=== PATIENT | male | born 1960 | race Caucasian/White ===

== ENCOUNTER 2016-12-16 11:21 | Inpatient (IN) | payer OTHER ==
--- NOTE | 2016-12-13 19:01 | HP ---
HISTORY AND PHYSICAL: DATE OF ADMISSION/SURGERY: 12/16/16 DATE OF OFFICE VISIT: 12/13/16 SURGEON: Altagracia Wyatt MD PROCEDURE: Right total knee arthroplasty. CHIEF COMPLAINT: Right knee pain. HISTORY OF PRESENT ILLNESS: Scott is a 56-year-old gentleman with complaints of right knee pain secondary to advanced osteoarthritis. He has failed conservative management and has elected to proceed with a right total knee arthroplasty. The surgery is scheduled for 12/16/[address] Wyatt. PAST MEDICAL HISTORY: Osteoarthritis. PAST SURGICAL HISTORY: Right biceps tendon repair. CURRENT MEDICATIONS: [id number] ibuprofen. ALLERGIES: No known drug allergies. FAMILY HISTORY: Heart disease. SOCIAL HISTORY: This is a 56-year-old gentleman. 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 He lives alone. He denies use of drugs. He does not smoke. REVIEW OF SYSTEMS: A complete 14-point review of systems was reviewed with the patient. He denies any bleeding disorders, history of DVT, PE, MRSA, hepatitis C, or HIV. He does report having difficulty waking up after anesthesia from his biceps tendon repair surgery. PHYSICAL EXAMINATION GENERAL: He is well developed, well nourished, in no acute distress. VITAL SIGNS: Stands 5 feet 11 inches tall, weighs 255 pounds. His blood pressure is 125/72 and his heart rate is 77. HEENT: Normocephalic, atraumatic. NECK: Supple. No palpable lymph nodes. PULMONARY: Lungs are clear to auscultation bilaterally. No wheezes, rhonchi, or rales. CARDIO: Regular rate and rhythm. Strong S1 and S2. No murmurs, gallops, or rubs. No peripheral edema. ABDOMEN: Soft, nontender, nondistended. MUSCULOSKELETAL: Right lower extremity skin is intact. He walks with a slightly antalgic type gait favoring the right leg. He has intact sensation. His lower extremity muscle group strengths are intact at 5/5. He has 2+ dorsalis pedis pulses. He has some tenderness over the medial and lateral joint line over the right knee. There is some mild joint effusion. No varus or valgus instability. Negative Tess's. Full range of motion. NEUROLOGICAL: He is alert and oriented x3. Cranial nerves II through XII are intact. ASSESSMENT AND PLAN: Scott is a 56-year-old gentleman with complaints of right knee pain secondary to advanced osteoarthritis. He has failed conservative management and has elected to proceed with a right total knee arthroplasty, which is scheduled for 12/16/16. Dr. Wyatt discussed the risks and benefits of the surgery with him today and all of his questions were answered. Percocet, Coumadin, and Colace were sent to his pharmacy today for post-operative DVT prophylaxis and pain control. He was instructed not to take these medications prior to the surgery. He will see Dr. Wyatt back 10 to 14 days after the surgery. RENEA GONZALES [id number]/[facility] #: [id number] MTDGely
[~2016-12-16 11:21] MED LIST: Buffered Lidocaine 1% SYR 3ML* 3 ML/SYR SYRINGE INTRADERM ONE; Famotidine IV* 10 MG/ML 2 ML (20 mg) IV ONE; Morphine INJ* 2 MG/ML 1 ML CARPUJECT IV PRN; PROCHLORPERAZINE INJ 5 MG/ML 2 ML VIAL IV PRN; fentaNYL* 50 MCG/ML 2 ML VIAL (100 MCG VIAL) IV PRN; oxyCODONE/Acetamin 5/325 MG* TAB PO PRN
[2016-12-16] MEDS ORDERED: ceFAZolin 2 GM PREMIX (*) 2 GM/50 ML BAG IVPB ONE (11:35)
[2016-12-16] MEDS ORDERED: Famotidine IV* 10 MG/ML 2 ML (20 mg) ONE (11:35)
[2016-12-16] MEDS ORDERED: Midazolam* 1 MG/ML 10 ML VIAL (10 MG) ONE (12:02)
[2016-12-16] MEDS ORDERED: fentaNYL* 50 MCG/ML 2 ML VIAL (100 MCG VIAL) ONE (12:02)
[2016-12-16] MEDS ORDERED: Morphine PF AMP (0.5MG/ML)* 5 MG/10 ML AMP ONE (12:02)
[2016-12-16] MEDS ORDERED: KETAMINE HCL* 50 MG/ML 10 ML VIAL ONE (12:02)
[2016-12-16] MEDS ORDERED: Midazolam* 1 MG/ML 2 ML VIAL (2 MG) ONE (14:23)
[2016-12-16] MEDS ORDERED: Ondansetron INJ* 2 MG/ML VIAL IV PRN (15:01)
[2016-12-16] MEDS ORDERED: Naloxone* 0.4 MG/ML 1 ML VIAL IV PRN (15:01)
[2016-12-16] MEDS ORDERED: PROCHLORPERAZINE INJ 5 MG/ML 2 ML VIAL IV PRN (15:01)
[2016-12-16] MEDS ORDERED: Ondansetron INJ* 2 MG/ML VIAL ONE ×2 (15:08→19:47)
[2016-12-16] MEDS ORDERED: Lidocaine 2% PF * 5 ML VIAL ONE (15:08)
[2016-12-16] MEDS ORDERED: Dexamethasone IV* 4 MG/ML 1 ML (4 MG) ONE (15:08)
[2016-12-16] MEDS ORDERED: Propofol* 10 MG/ML 20 ML BTL IV PUSH ONE (15:08)
[2016-12-16] MEDS ORDERED: Scopolamine PATCH Remove* 1 NOTE MISC PATCH OFF SCH (16:00)
[2016-12-16] MEDS ORDERED: Scopolamine 1.5 mg* PATCH TRANSDERM SCH (16:00)
[2016-12-16] MEDS ORDERED: Bisacodyl SUPP* 10 MG SUPP PR PRN (16:38)
[2016-12-16] MEDS ORDERED: Polyethylene Glycol 3350* 17 GM PACKET PO PRN (16:38)
[2016-12-16] MEDS ORDERED: Acetaminophen TAB* 325 MG PO PRN (16:38)
[2016-12-16] MEDS ORDERED: Bupivacaine 0.25% SDV* 30 ML ONE (16:39)
[2016-12-16] MEDS ORDERED: Bupivacaine 0.5% SDV PF* 30 ML VIAL ONE (16:39)
[2016-12-16] MEDS ORDERED: Albuterol HFA INHALER* 8 gm MDI INH PRN (16:46)
[2016-12-16] MEDS ORDERED: VALACYCLOVIR 500 MG PO PRN (16:46)
[2016-12-16] MEDS ORDERED: Scopolamine 1.5 mg* PATCH ONE (18:17)
[2016-12-16] MEDS ORDERED: Nalbuphine* 20 MG/ML 1 ML VIAL ONE (19:55)
[2016-12-16] MEDS: Nalbuphine* 20 MG/ML 1 ML VIAL IV PRN (20:00)
[2016-12-16] MEDS ORDERED: Warfarin TAB(*) 4 MG PO ONE (21:00)
--- NOTE | 2016-12-16 21:12 | RAD ---
HISTORY: Status post right knee arthroplasty COMPARISONS: October 11, 2016 VIEWS: 2, Frontal and lateral views of the right knee FINDINGS: BONE DENSITY: Normal. BONES: The patient is status post right knee arthroplasty. There is no hardware failure or osteolysis. JOINTS: The patient is status post right knee arthroplasty. ALIGNMENT: There is no dislocation. SOFT TISSUES: There is postsurgical change to the soft tissue OTHER FINDINGS: None. IMPRESSION: STATUS POST RIGHT KNEE ARTHROPLASTY
[2016-12-16] MEDS: ceFAZolin 1 GM in Dextrose (*) 1 GM/50 ML BAG IVPB SCH (22:00)
[2016-12-16] MEDS: Magnesium Hydroxide LIQ* 30 ML UDC PO SCH (22:01)
[2016-12-16] MEDS: Docusate CAP* 100 MG PO SCH (22:01)
[2016-12-17] MEDS: Nalbuphine* 20 MG/ML 1 ML VIAL IV PRN (02:37)
[2016-12-17] MEDS: oxyCODONE/Acetamin 5/325 MG* TAB PO PRN ×4 (03:42→23:58)
[2016-12-17] MEDS: ceFAZolin 1 GM in Dextrose (*) 1 GM/50 ML BAG IVPB SCH ×2 (05:07→14:54)
[2016-12-17] MEDS ORDERED: Ondansetron INJ* 2 MG/ML VIAL IV PRN (06:00)
[2016-12-17] MEDS ORDERED: oxyCODONE/Acetamin 5/325 MG* TAB PO PRN (06:00)
--- NOTE | 2016-12-17 06:59 | OP ---
DATE OF OPERATION: 12/16/16 - ROOM #349 DATE OF : 56 SURGEON: Altagracia Wyatt MD CAR WORKER: RENEA Taylor ANESTHESIOLOGIST: Dr. Turner. ANESTHESIA: Spinal with adductor nerve block. PRE-OP DIAGNOSIS: Severe end-stage degenerative osteoarthritis of the right knee joint. POST-OP DIAGNOSIS: Severe end-stage degenerative osteoarthritis of the right knee joint. OPERATIVE PROCEDURE: Right total knee arthroplasty. TOURNIQUET TIME: 55 minutes. COMPLICATIONS: None. SPECIMEN: Bone and cartilage from right knee joint sent to pathology. ESTIMATED BLOOD LOSS: 300 cc. HARDWARE USED: Cemented [employer] total knee hardware with two packages of Simplex bone cement. To the femur, size 7 right posterior stabilized Oxinium femoral component. For the tibia a size 6 right tibial base plate, for the insert an 11 mm posterior stabilized articular insert and for the patella 3- peg all poly patella size 35. BRIEF HISTORY AND INDICATIONS: Mr. Crenshaw is a 56-year-old gentleman with years of increasingly severe right knee pain. He failed conservative treatment with antiinflammatories, pain medications, intraarticular injections and physical therapy. Radiographs showed [id number] arthritis. He elected to undergo right total knee arthroplasty due to continued pain and decreased quality of life. Informed consent was obtained from the patient. He understood the risks of the procedure included but were not limited to bleeding, infection, damage to nearby structures, continued pain, need for further surgery, intraoperative fracture, nerve palsy, hardware failure or loosening, stroke, heart attack, blood clot and . He wished to proceed. INTRAOPERATIVE FINDINGS: Intraoperatively, the patient was noted to have a fibrous enlarged prepatellar bursa, which was excised. He had severe end-stage arthritis with complete loss of cartilage in the medial and patellofemoral compartments. DESCRIPTION OF PROCEDURE: Mr. Crenshaw was identified in the preanesthesia unit. His right lower extremity was marked as correct operative side. Informed consent was signed and placed in the chart. The patient was taken to the operating room. He had an adductor canal block placed as well as spinal anesthesia. A Villalobos catheter was placed. Thigh high tourniquet was placed on the right thigh. The right lower extremity was prepped and draped in the usual sterile fashion. Preoperative time- out was made to correctly identify the patient's side and site. Appropriate perioperative antibiotics were given within 1 hour of incision. Tourniquet was inflated and total tourniquet time for this procedure was 55 minutes. A 14 cm midline incision was made with a 10 blade. This was carried down to the extensor mechanism. A fibrous and large prepatellar bursa was identified and excised with electrocautery. A new 10 blade was used to make a standard medial parapatellar arthrotomy. The patella was subluxed laterally. Soft tissue was elevated using electrocautery off the superomedial tibia to the mid sagittal plane. The knee was flexed up. Anterior horn of the lateral meniscus and ACL were sharply released. A drill was used to enter the distal femur. Intramedullary distal femoral cutting guide was pinned into proper position and oscillating saw was used to make the distal femoral cuts. External rotation guide was pinned on the distal femur. The femur was sized to a size 7. Size 7 multicutting block was chosen and pinned into proper position on the distal femur. The oscillating saw was used to make the appropriate four chamfer cuts. All bony fragments were carefully removed. Next, the PCL was completely released and tibia was subluxed anteriorly. Extramedullary tibial cutting guide was pinned into position on the proximal tibia. Oscillating saw was used to make the appropriate proximal tibial cut. The bone was carefully removed. This cut was made perpendicular to the mechanical axis of the tibia. Tibia was brought out into full extension. A spacer block had good fit with full extension of the knee. There was good medial and lateral ligamentous balancing. Good flexion and extension gap balancing. The knee was flexed up. Lamina hospice physician was placed both medially and laterally. Any remaining meniscus was carefully removed using electrocautery. A curved osteotome was used to remove posterior osteophytes along the posterior femoral condyles. The tibial tray and drop mirna once again ensured a satisfactory proximal tibial cut. A size 7 right femoral trial was then chosen and impacted onto the distal femur. There was excellent fit. Box for the posterior stabilized implant was prepared using a reamer and box cut osteotome. A size 6 tibial trial and 11 mm insert trial were chosen. The knee was taken through range of motion and noted to have full extension to 130 degrees of flexion with good patellofemoral tracking. The patella was everted. A 9 mm of patellar bony cartilage was carefully removed with an oscillating saw. The patella was sized to size 35. The three peg holes were drilled through the size 35 guide. Trial 35 patella was placed and the knee was taken through range of motion. There was good patellofemoral tracking. All trials were carefully removed. The tibia was subluxed anteriorly and sized to a size 6. Proximal tibia was prepared using a size 6 keel punch. All bony cut surfaces were copiously irrigated with sterile saline and dried. The final implants were cemented into place starting with the tibia, followed by the femur and last the patella. An 11 mm insert trial was chosen and placed while the knee was brought out into the full extension, tourniquet was turned down at 55 minutes. The knee was copiously irrigated. Once the cement had fully cured, the insert trial was removed. Electrocautery was used to obtain meticulous hemostasis. Any excess cement was carefully removed. Final insert chosen was a posterior stabilized 11 mm, size 5/6 polyethylene insert. This was locked into position on the tibial tray. Stability of the insert was checked and rechecked and noted to be stable. Final range of motion was 0 to 130 degrees of flexion. There was good patellofemoral tracking. Good medial and lateral stability. The knee was copiously irrigated with sterile saline. The extensor mechanism was closed over a medium Hemovac drain using interrupted #1 Vicryl. The rest of the incision was closed in a layered fashion using 0 and 2-0 Vicryl. Skin was closed using running 3-0 nylon suture. Sterile Xeroform, 4x4's, and Webril were placed over the incision. Jw wrap and cold pack were placed over this. The patient's anesthesia was reversed without difficulty. He was taken to the PACU in stable condition. Intended weightbearing will be weightbearing as tolerated. Intended deep vein thrombosis prophylaxis will be Coumadin with a Lovenox bridge. [id number]/[facility] #: [id number] HEALTH SYSTEMGely
[2016-12-17 07:07] LABS: Hematocrit 39 % (42-52); Hemoglobin 13.8 g/dl (14.0-18.0)
[2016-12-17 07:28] LABS: Calcium 8.8 mg/dL (8.6-10.3); EGFR African American 112.9 (>60); EGFR Non-African American 87.8 (>60); Potassium 4.7 mmol/L (3.5-5.0)
[2016-12-17] MEDS: Ondansetron TAB* 4 MG PO PRN (08:36)
[2016-12-17] MEDS: Docusate CAP* 100 MG PO SCH ×2 (08:37→19:35)
[2016-12-17] MEDS: Magnesium Hydroxide LIQ* 30 ML UDC PO SCH ×2 (08:37→19:36)
[2016-12-17] MEDS: Vitamin THERAPEUTIC TAB PO SCH (08:37)
[2016-12-17] MEDS: diPHENhydraMINE IV* 50 MG/ML 1 ml VIAL (BENADRYL) IV PRN ×2 (10:37→19:24)
[2016-12-17] MEDS: Morphine INJ* 4 MG/ML 1 ML CARPUJECT IV PRN ×3 (11:35→21:56)
--- NOTE | 2016-12-17 12:29 | PN ---
Progress Note - Progress Note SOAP: Subjective: [56 y/o male s/p R TKA 12/16/2016. Patient reports feeling well, + itchy. Pain controlled with pain medication, ambulatory this AM to rest room. No complaints. ] Objective: [General- Well appearing, NAD MSK- SUrgical dressing intact, no drainage. + dorsi/plantarflexion b/l LE's, minimal swelling R LE neg homans sign b/l. Vital Signs Temp 97.3 F 12/17/16 07:56 Pulse 68 12/17/16 07:56 Resp 18 12/17/16 11:35 BP 116/67 12/17/16 07:56 Pulse Ox 95 12/17/16 07:56 Intake & Output 12/16/16 12/17/16 12/17/16 18:59 06:59 18:59 Intake Total 2530 1128 Output Total 300 650 Balance 2230 478 Weight 248 lb Intake: IV Fluids 2500 953 LR 2500 953 IVPB 55 Kefzol 55 Oral 30 120 Output: Villalobos 300 650 ] Assessment: [56 y/o male s/p R TKA 12/16/2016. ] Plan: [- DVT prophy- continue lovenox, coumadin 8mg tonight - Continue PT - Continue pain regimen ] Active Medications Generic Name Dose Route Start Last Admin Trade Name Freq PRN Reason Stop Dose Admin Acetaminophen 650 mg 12/16/16 16:38 Tylenol Tab* PO Q4H PRN fever, pain Albuterol 2 puff 12/16/16 16:46 Ventolin Hfa Inhaler* INH Q3H PRN SOB/WHEEZING Bisacodyl 10 mg 12/16/16 16:38 Dulcolax Supp* LA DAILY PRN constipation Diphenhydramine HCl 12.5 mg 12/17/16 06:00 12/17/16 10:37 Benadryl Iv* IV 12.5 mg Q6H PRN Administration PRURITIS Docusate Sodium 100 mg 12/16/16 21:00 12/17/16 08:37 Colace Cap* PO 100 mg BID PRINCESS Administration Enoxaparin Sodium 40 mg 12/17/16 16:00 Lovenox(*) SUBCUT Q24H PRINCESS Cefazolin Sodium/Dextrose 1 gm in 50 mls @ 200 mls/hr 12/16/16 21:00 05:07 Kefzol 1 Gm In Dextrose Duplex (*) IVPB 12/17/16 13:14 200 mls/hr Q8H PRINCESS Administration Lactated Ringer's 1,000 mls @ 100 mls/hr 12/16/16 17:00 12/17/16 03:00 Lactated Ringers 1000 Ml Bag* IV 100 mls/hr PER RATE PRINCESS Administration Ibuprofen 800 mg 12/16/16 15:01 Motrin Tab* PO 12/21/16 09:02 Q6H PRN PAIN Lactulose 30 ml 12/16/16 16:38 Lactulose* PO Q6H PRN constipation Magnesium Hydroxide 30 ml 12/16/16 21:00 12/17/16 08:37 Milk Of Magnesia Liq* PO 30 ml BID PRINCESS Administration Morphine Sulfate 4 mg 12/17/16 06:00 12/17/16 11:35 Morphine Inj (Syringe)* IV 4 mg Q2H PRN Administration PAIN - BREAKTHROUGH Multivitamins 1 tab 12/17/16 09:00 12/17/16 08:37 Theragran Tab* PO 1 tab DAILY PRINCESS Administration Ondansetron HCl 4 mg 12/17/16 06:00 Zofran Inj* IV Q6H PRN nausea Ondansetron HCl 4 mg 12/17/16 06:00 12/17/16 08:36 Zofran Tab* PO 4 mg Q6H PRN Administration NAUSEA Oxycodone/Acetaminophen 2 tab 12/16/16 15:01 12/17/16 03:42 Percocet 5/325 Tab* PO 12/19/16 19:02 2 tab Q4H PRN Administration Moderate Pain Oxycodone/Acetaminophen 1 tab 12/17/16 06:00 Percocet 5/325 Tab* PO Q4H PRN PAIN - MILD Oxycodone/Acetaminophen 2 tab 12/19/16 19:02 12/17/16 08:35 Percocet 5/325 Tab* PO 2 tab Q4H PRN Administration PAIN - MODERATE Pharmacy Profile Note 1 note 12/16/16 16:00 Scopolomine Patch Remove* PATCH OFF 12/19/16 15:02 .AFTER 72 HOURS PRINCESS Polyethylene Glycol/Electrolytes 17 gm 12/16/16 16:38 Miralax* PO DAILY PRN Constipation Scopolamine 1 patch 12/16/16 16:00 12/16/16 18:18 Transderm-Scop 1.5 Mg Patch* TRANSDERM 1 patch Q72H PRINCESS Administration Valacyclovir HCl 500 mg 12/16/16 16:46 Valtrex 500 Mg (*) PO DAILY PRN Herpes outbreak Protocol Warfarin Sodium 8 mg 12/17/16 17:00 Coumadin Tab(*) PO 12/17/16 17:01 ONCE@1700 ONE Protocol
--- NOTE | 2016-12-17 14:20 | PN ---
Progress Note - Progress Note Note: Anesthesia duramorph followup. The pt had nausea and vomiting last night. I'd bet this was from the duramorph. He did have a scopolamine patch on. His nausea is much better. Pain is controlled woth oral meds. Neuro ok, VSS. s/p TKR, continue oral meds.
[2016-12-17] MEDS ORDERED: Enoxaparin(*) 40 MG/0.4 ML SYR SUBCUT SCH (16:00)
[2016-12-17] MEDS ORDERED: Warfarin TAB(*) 4 MG PO ONE (17:00)
[2016-12-18] MEDS: Ondansetron TAB* 4 MG PO PRN (00:04)
[2016-12-18] MEDS: Morphine INJ* 4 MG/ML 1 ML CARPUJECT IV PRN ×5 (00:05→10:01)
[2016-12-18] MEDS: diPHENhydraMINE IV* 50 MG/ML 1 ml VIAL (BENADRYL) IV PRN (01:15)
[2016-12-18] MEDS: Al Hydrox/Mg Hydrox/Simet LIQ* 30 ML UDC PO PRN ×2 (01:16→07:03)
[2016-12-18] MEDS: Ibuprofen TAB* 800 MG PO PRN ×3 (01:16→18:36)
[2016-12-18] MEDS: oxyCODONE/Acetamin 5/325 MG* TAB PO PRN ×6 (03:42→23:13)
[2016-12-18 07:34] LABS: Hematocrit 34 % (42-52); Hemoglobin 11.8 g/dl (14.0-18.0)
[2016-12-18] MEDS: Docusate CAP* 100 MG PO SCH ×2 (07:52→19:40)
[2016-12-18] MEDS: Vitamin THERAPEUTIC TAB PO SCH (07:52)
[2016-12-18] MEDS: Magnesium Hydroxide LIQ* 30 ML UDC PO SCH (07:52)
[2016-12-18] MEDS ORDERED: chlorproMAZINE INJ* 25 MG/ML 2 ML (50 MG) IV PRN (10:07)
--- NOTE | 2016-12-18 10:18 | PN ---
Progress Note - Progress Note SOAP: Subjective: Pt. reports pain is severe, he has acid reflux and is suffering from intractable hiccups. Objective: RLE - dressing changed, inc c/d/i. min swelling. distally nvi. Vital Signs: Temp Pulse Resp BP Pulse Ox 97.8 F 76 18 142/65 97 12/18/16 07:35 12/18/16 07:35 12/18/16 10:01 12/18/16 07:35 12/18/16 08:00 Laboratory Results - last 24 hr 12/18/16 12/18/16 07:10 07:10 Hgb 11.8 L Hct 34 L INR (Anticoag Therapy) 2.25 H Assessment: 56 yo M pod 2 s/p RTKA Plan: pt/ot - wbat rle 3 mg coumadin tonight, d/c lovenox acid reflux and hiccups - tums, famotidine and thorazine aggressive bowel regimen today plan d/c to home tomorrow
[2016-12-18] MEDS: Morphine TAB Extended Release (*) 30 MG TAB.ER PO SCH ×2 (11:05→23:13)
[2016-12-18] MEDS: chlorproMAZINE TAB* 25 MG PO PRN ×2 (11:07→19:38)
[2016-12-18] MEDS ORDERED: Warfarin TAB(*) 3 MG PO ONE (17:00)
[2016-12-18] MEDS ORDERED: Magnesium Hydroxide LIQ* 30 ML UDC PO PRN (19:15)
[2016-12-18] MEDS: Famotidine TAB* 20 MG PO SCH (19:38)
[2016-12-19] MEDS: oxyCODONE/Acetamin 5/325 MG* TAB PO PRN ×2 (03:58→08:39)
[2016-12-19] MEDS: Famotidine TAB* 20 MG PO SCH (07:30)
[2016-12-19] MEDS: Vitamin THERAPEUTIC TAB PO SCH (07:30)
[2016-12-19] MEDS: Ibuprofen TAB* 800 MG PO PRN (07:30)
[2016-12-19] MEDS: chlorproMAZINE TAB* 25 MG PO PRN (07:30)
[2016-12-19] MEDS: Docusate CAP* 100 MG PO SCH (07:30)
[2016-12-19 08:14] LABS: Hematocrit 32 % (42-52); Hemoglobin 10.7 g/dl (14.0-18.0)
[2016-12-19 08:43] VITALS: BP 130/59
--- NOTE | 2016-12-19 09:49 | PN ---
Progress Note - Progress Note SOAP: Subjective: [Pt reports doing well. Pain controlled with po meds. Denies CP/SOB/calf pain. Feel ready to go home.] Objective: [A and O x 3, NAD R knee dressing C/D/I. Calf soft, NT. Distal NV function, gross motor intact. Laboratory Results - last 24 hr 12/19/16 12/19/16 07:50 07:50 Hgb 10.7 L Hct 32 L INR (Anticoag Therapy) 2.14 H Vital Signs: Temp Pulse Resp BP Pulse Ox 98.2 F 97 18 130/59 95 12/19/16 08:01 12/19/16 08:01 12/19/16 08:39 12/19/16 08:01 12/19/16 08:01 ] Assessment: [s/p R TKA POD #3] Plan: [D/C patient home with services Coumadin 2 mg today Percocet and morphine for pain control WBAT R LE Follow-up with Dr. Wyatt in 2 weeks]
[2016-12-19] MEDS: Morphine TAB Extended Release (*) 30 MG TAB.ER PO SCH (10:23)
[2016-12-19] MEDS ORDERED: oxyCODONE/Acetamin 5/325 MG* TAB PO PRN (19:02)
--- NOTE | 2016-12-19 23:15 | DS ---
DISCHARGE SUMMARY: DATE OF ADMISSION: 12/16/16 DATE OF DISCHARGE: 12/19/16 ADMITTING DIAGNOSIS: Right knee osteoarthritis. DISCHARGE DIAGNOSES: Status post right total knee arthroplasty. PROCEDURE: Right total knee arthroplasty. CONSULTANTS: Physical therapy and occupational therapy. BRIEF HISTORY: Mr. Crenshaw is a 56-year-old male with severe degenerative osteoarthritis of his right knee. He failed conservative treatment measures and elected to undergo right total knee arthroplasty on 12/16/[address] Wyatt. HOSPITAL COURSE: Mr. Crenshaw was admitted to [facility] on 12/16/16. He underwent an uncomplicated right total knee arthroplasty. Postoperatively, he recovered on the short-stay surgical unit. On postoperative day #1, his Villalobos catheter was removed; however, the patient was having difficulty urinating on his own and 100 mL lactated Ringer bolus was administered. The patient was unable to urinate on his own. Postoperative day #2, he was able to have a bowel movement. He suffered from acid reflux and intractable hiccups during his postoperative stay and was prescribed Tums, famotidine and Thorazine. He advanced to regular diet without difficulty. His pain was well controlled with Percocet and morphine. He was restarted on his home medications. His vital signs and labs remained stable. He was able to bear weight as tolerated on the right lower extremity. He advanced appropriately with physical therapy and occupational therapy. His DVT prophylaxis was bridged with Lovenox and Coumadin until he reached therapeutic INR range. On postoperative day #3, he was orthopedically and medically stable for discharge home with services. PHYSICAL EXAMINATION: General: On examination, the patient is noted to be calm and cooperative in no acute distress. He is alert and oriented x3. Vital Signs: On day of discharge, temperature 98.2 Fahrenheit, pulse rate 97, O2 sat on room air 95%, blood pressure 130/59. Extremities: Examination of the right lower extremity demonstrates a dressing overlying the right knee which is clean , dry and intact. His calf is soft and nontender. Distally, he has +2 palpable dorsalis pedis pulse, 5/5 ankle dorsiflexion and plantar flexion, and strength. Sensation is intact to light touch. LABORATORY DATA: On day of discharge, hemoglobin 10.7, hematocrit 32, INR 2.14. RADIOGRAPHS: Postoperative radiographs of the right demonstrate a right total knee arthroplasty with satisfactory prosthesis placement and no acute bony abnormalities. DISCHARGE MEDICATIONS: 1. Percocet 5/325 one to two tabs p.o. q.4-6 h. p.r.n. pain. 2. Morphine sulfate ER 30 mg 1 tab b.i.d. p.r.n. pain. 3. Coumadin 2 mg tablet, use as directed. The patient will take 2 mg of Coumadin on Tuesday day of discharge. 4. Colace 100 mg p.o. t.i.d. p.r.n. constipation. CONDITION ON DISCHARGE: Stable. DISCHARGE INSTRUCTIONS: Mr. Crenshaw is a 56-year-old male postoperative day #3, status post right total knee arthroplasty which was uncomplicated. He is orthopedically and medically stable to be discharged home with services. He had stable vital signs and labs. He is not really on any home medications. He will take 2 mg of Coumadin on Tuesday night and have INR rechecked on Tuesday. He will have INR draws on Mondays and with visiting nurse services. He will remain weightbearing as tolerated on the right lower extremity. He will have home physical therapy twice a day. He will take Percocet and morphine for pain control and Colace up to 3 times a day for constipation. He will follow up in the office with Dr. Wyatt in 10 to 14 days for incision check and suture removal. He is instructed to call Dr. Wyatt or go immediately to the ER should he develop any new fever, chills, incision pain, redness or drainage. He was instructed to go immediately to the ER should he develop chest pain or shortness of breath. RENEA VOGT [id number]/[facility] #: [id number] RADHA
== END 2016-12-19 10:55 | disposition home health service (06) | DRG 470 ==
LOC: AA 11:21 → SSU 18:49
PROVIDERS: ADMIT Orthopaedic Surgery Adult Reconstructive Orthopaedic Surgery; ATTEND Orthopaedic Surgery Adult Reconstructive Orthopaedic Surgery
PROC: 0SRC0J9 Replacement of Right Knee Joint with Synthetic Substitute, Cemented, Open Approach (ICD-10-PCS; principal; 2016-12-16 14:30)
DX: M17.11 Unilateral primary osteoarthritis, right knee (principal); K21.9 Gastro-esophageal reflux disease without esophagitis; R06.6 Hiccough; Z82.49 Family history of ischemic heart disease and other diseases of the circulatory system; R11.2 Nausea with vomiting, unspecified
CPT/HCPCS: 36415; 80048; 85014; 85018; 85610; 88305; 88311; A9270-GY; C1776; J0690; J0780; J1100; J1200; J1650; J2250; J2270; J2300; J2405; J2704; J3010

== ENCOUNTER 2019-04-29 18:27 | Emergency (ER) | payer SELFPAY ==
[2019-04-29 18:59] VITALS: BP 138/72
--- NOTE | 2019-04-29 19:15 | UC ---
Skin Complaint HPI - HPI Summary HPI Summary: Black spot on the right calf x 3 days. Was more red yesterday. - History of Current Complaint Stated Complaint: TICK Hx Obtained From: Patient Onset/Duration: Sudden Onset, Lasting Days - 3, Still Present Onset Severity: Mild Current Severity: None Pain Intensity: 0 Location: Discrete - right posterior calf Character: Raised Aggravating Factor(s): Nothing Alleviating Factor(s): Nothing Associated Signs & Symptoms: Positive: Negative - Allergy/Home Medications Allergies/Adverse Reactions: Allergies Allergy/AdvReac Type Severity Reaction Status Date / Time No Known Allergies Allergy Verified 04/29/19 18:59 Home Medications: Home Medications NK [No Home Medications Reported] 04/29/19 [History Confirmed 04/29/19] PMH/Surg Hx/FS Hx/Imm Hx Previously Healthy: Yes - Surgical History Surgical History: Yes Surgery Procedure, Year, and Place: RT KNEE REPLACEMENT, RT ELBOW BICEP TENDON REPAIR - Family History Known Family History: Positive: Unknown Negative: Hypertension - Social History Occupation: Employed Full-time Lives: With Family Alcohol Use: None Substance Use Type: None Smoking Status (MU): Never Smoked Tobacco - Immunization History Most Recent Influenza Vaccination: 2016 Most Recent Tetanus Shot: 2016 Most Recent Pneumonia Vaccination: NONE Review of Systems All Other Systems Reviewed And Are Negative: Yes Skin: Positive: Other - spot on calf Physical Exam Triage Information Reviewed: Yes Appearance: Well-Appearing, No Pain Distress, Obese Vital Signs: Initial Vital Signs Temp 97.8 F 04/29/19 18:55 Pulse 67 04/29/19 18:55 Resp 18 04/29/19 18:55 BP 138/72 04/29/19 18:55 Pulse Ox 98 04/29/19 18:55 Vital Signs Reviewed: Yes Eyes: Positive: Conjunctiva Clear Neck exam: Normal Respiratory Exam: Normal Cardiovascular Exam: Normal Musculoskeletal Exam: Normal Neurological Exam: Normal Psychological Exam: Normal Skin: Positive: Other - small black scab on the right posterior calf. Course/Dx - Differential Diagnoses - Skin Complaint Differential Diagnoses: Allergic Reaction, Cellulitis, Drug Rash, Tick Born Illness - Diagnoses Provider Diagnosis: Open wound of right lower leg Discharge - Sign-Out/Discharge Documenting (check all that apply): Patient Departure All imaging exams completed and their final reports reviewed: No Studies - Discharge Plan Condition: Stable Disposition: HOME Patient Education Materials: Abrasion (ED) Referrals: Jacques Jean Baptiste MD [Primary Care Provider] - - Billing Disposition and Condition Condition: STABLE Disposition: Home
== END 2019-04-29 19:20 | disposition home or self-care (01) ==
LOC: UCCORT 18:27
DX: S81.801A Unspecified open wound, right lower leg, initial encounter (principal); X58.XXXA Exposure to other specified factors, initial encounter; Y92.9 Unspecified place or not applicable
CPT/HCPCS: 99211; G0463

== ENCOUNTER 2023-10-04 07:30 | Observation (INO) ==
[2023-11-10] MEDS ORDERED: Lactated Ringers 1000 ml BAG 1,000 ML IV SCH (06:00)
[2023-11-10] MEDS ORDERED: Buffered Lidocaine 1% SYRIN 1 ml INTRADERM ONE (06:00)
[2023-11-10] MEDS ORDERED: Propofol 10 MG/ML 20 ML BTL ONE ×5 (08:53→13:48)
[2023-11-10] MEDS ORDERED: Lidocaine 2% PF 5 ML VIAL ONE (08:53)
[2023-11-10] MEDS ORDERED: Midazolam 2 mg/2 ml VIAL 1 mg/ml 2 ml VIAL (2 mg) ONE (08:55)
[2023-11-10] MEDS ORDERED: ceFAZolin 2 GM PREMIX 2 GM/50 ML BAG ONE (09:03)
[2023-11-10] MEDS ORDERED: Tranexamic Acid 1 GM/100ML BAG 2,000 MG/200 ML BAG IV ONE (09:03)
[2023-11-10 09:16] LABS: Rapid COVID-19 Molecular Undetected (Undetected)
[2023-11-10] MEDS ORDERED: ROPIVACAINE 5 MG/ML 30 ML BTL (0.5%) ONE (10:17)
[2023-11-10] MEDS ORDERED: Bupivacaine-MPF SPINAL 7.5 MG/ML - 2ML AMP ONE (11:11)
[2023-11-10] MEDS ORDERED: KETAMINE HCL 10 MG/ML 20 ml VIAL (200 MG) ONE (11:20)
[2023-11-10] MEDS ORDERED: Glycopyrrolate IV 0.2 MG/ML 1 ML VIAL ONE (11:23)
[2023-11-10] MEDS ORDERED: Acetaminophen IV 1 GM/100ML 1,000 MG/100 ML BAG IV ONE (11:37)
[2023-11-10] MEDS ORDERED: Phenylephrine 40 mcg/mL 10mL (400mcg) SYRINGE ONE (11:41)
[2023-11-10] MEDS ORDERED: Ondansetron 4 mg VIAL 2 MG/ML 2 ml VIAL ONE (12:01)
[2023-11-10] MEDS ORDERED: Dexamethasone IV 4 MG/ML VIAL 1 ml VIAL ONE (12:01)
[2023-11-10] MEDS ORDERED: Acetaminophen IV 1 GM/100ML 1,000 MG/100 ML BAG IV PRN (12:35)
[2023-11-10] MEDS ORDERED: fentaNYL 100 mcg/2 ml 50 MCG/ML VIAL IV PRN (12:35)
[2023-11-10] MEDS ORDERED: HYDROmorphone 1 MG/1 ML SYRINGE IV PRN (12:35)
[2023-11-10] MEDS ORDERED: Naloxone 0.4 mg VIAL 0.4 mg/ml 1 ml VIAL IV PRN (12:35)
[2023-11-10] MEDS ORDERED: Ondansetron 4 mg VIAL 2 MG/ML 2 ml VIAL IV PRN ×2 (12:35→14:13)
[2023-11-10] MEDS ORDERED: Lactulose 30 ml UDC PO PRN (14:13)
[2023-11-10] MEDS ORDERED: Morphine 2 MG/ML SYRINGE IV PRN (14:13)
[2023-11-10] MEDS ORDERED: Ondansetron ODT 4 mg TAB 4 MG TAB PO PRN (14:13)
[2023-11-10] MEDS ORDERED: Magnesium Hydroxide LIQ 30 ML UDC PO PRN (14:13)
[2023-11-10] MEDS: Lactated Ringers 1000 ml BAG 1,000 ML IV SCH (16:16)
[2023-11-10] MEDS: ceFAZolin 1 GM ADVAN 1 GM in NS 0.9% 50 ML 50 ML IVPB SCH (20:00)
[2023-11-10] MEDS: Magnesium Hydroxide LIQ 30 ML UDC PO SCH (20:38)
[2023-11-11] MEDS: Lactated Ringers 1000 ml BAG 1,000 ML IV SCH (02:31)
[2023-11-11] MEDS: ceFAZolin 1 GM ADVAN 1 GM in NS 0.9% 50 ML 50 ML IVPB SCH ×2 (04:17→11:45)
[2023-11-11 06:54] LABS: Platelet Count 154 10^3/uL (150-450)
[2023-11-11 07:24] LABS: Calcium 8.3 mg/dL (8.6-10.3); Potassium 4.3 mmol/L (3.5-5.0); eGFR CKD-EPI 83.5 (>60)
[2023-11-11 07:30] LABS: Hematocrit 36.8 % (38-53); Hemoglobin 12.6 g/dL (13.2-16.3); Mean Platelet Volume 8.9 fL (7.5-11.2)
[2023-11-11] MEDS: Magnesium Hydroxide LIQ 30 ML UDC PO SCH (08:07)
[2023-11-11] MEDS ORDERED: Vitamin THERAPEUTIC TAB PO SCH (09:00)
[2023-11-11 10:46] VITALS: BP 138/76
== END 2023-11-11 14:50 | disposition home or self-care (01) ==
LOC: INTOOBSV 11-10 08:36 → AA 11-10 08:36 → SSU 11-10 14:13
PROVIDERS: ADMIT Orthopaedic Surgery Adult Reconstructive Orthopaedic Surgery; ATTEND Orthopaedic Surgery Adult Reconstructive Orthopaedic Surgery